=== PATIENT | male | born 1960 | race Two or more races ===

== ENCOUNTER → 2016-10-23 | Outpatient (CLI) | payer OTHER ==
--- NOTE | 2016-10-23 14:38 | KCIC ---
PROCEDURE Brain MRI without contrast. HISTORY Dizziness and giddiness. TECHNIQUE Multiplanar and multi sequence magnetic resonance imaging of the brain was performed without contrast. COMPARISON Correlation is made with a report from a CT performed at an outside facility on 10/10/2016. FINDINGS There is a tiny focus of slight increased signal on diffusion-weighted images within the posterior right frontal lobe subcortical white matter. There is no corresponding signal change on ADC map images. This demonstrates hyperintensity on T2/FLAIR images. 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 There is no susceptibility effect to suggest hemorrhage. There is no mass effect or midline shift. There is no hydrocephalus. There are few scattered focal areas of signal change throughout the cerebral white matter, a nonspecific finding. The orbits are unremarkable. The paranasal sinuses are unremarkable. There is a tiny amount of fluid within the mastoid air cells. There are normal flow voids within the cerebral vessels. IMPRESSION 1. Tiny focus of slight increased signal on diffusion-weighted images within the posterior left frontal lobe subcortical white matter. 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 Correlate with symptomatology. 2. Scattered foci of signal change within the cerebral white matter, likely due to chronic small vessel disease. Electronically signed by: Luz Marina Madrid (Oct 23, 2016 14:37:04)
== END | disposition home or self-care (01) ==
LOC: KCIC MRI 12:47
PROVIDERS: ATTEND Internal Medicine
DX: R42 Dizziness and giddiness (principal)
CPT/HCPCS: 70551